=== PATIENT | female | born 1995 | race Caucasian/White ===

== ENCOUNTER 2018-11-21 21:10 | Emergency (ER) | payer OTHER ==
[2018-11-21 21:50] VITALS: RESP 16; TEMP 98.2
[2018-11-21 22:31] VITALS: BP 135/79; PULSE 86
[2018-11-21] MEDS ORDERED: CEPHALEXIN 500 MG CAP PO STA (22:31)
[2018-11-21] MEDS ORDERED: SULFAMETHOX-TMP 800-160MG 1 EACH TAB PO STA (22:31)
[2018-11-21] MEDS ORDERED: CEPHALEXIN 500MG STARTER PACK 4 CAP BTL PO STA (22:31)
[2018-11-21] MEDS ORDERED: SULFAMETH-TMP DS STARTER PACK 2 TAB BTL PO STA (22:31)
--- NOTE | 2018-11-21 22:34 | ED ---
Extremity Problem HPI - General Chief complaint: Extremity Problem,Nontraumatic Stated complaint: Poss MRSA Time Seen by Provider: 11/21/18 22:17 Source: patient, RN notes reviewed, old records reviewed Mode of arrival: ambulatory Limitations: no limitations - History of Present Illness Initial comments: This is a 21-year-old female the ER for evaluation. Left lower extremity pain. Patient has some swelling and edema to left lower extremity left ankle. Unknown if there is recent bug bite or spider bite. Patient does complain of severe pain. No fevers. No other complaints MD Complaint: extremity pain, extremity swelling -: days(s) Location: left, lower extremity, other (Ankle) History of Same: No Severity scale (1-10): 2 Quality: aching Consistency: constant Improves with: nothing Worsens with: nothing Associated Symptoms: denies other symptoms - Related Data Previous Rx's Medication Instructions Recorded Cephalexin [Keflex] 500 mg PO Q6HR #40 cap 11/21/18 Sulfamethox-Tmp 800-160Mg [Bactrim 2 tab PO Q12HR #28 tab 11/21/18 DS 800-160 mg] Allergies Allergy/AdvReac Type Severity Reaction Status Date / Time No Known Allergies Allergy Verified 11/21/18 22:14 Review of Systems ROS Statement: Those systems with pertinent positive or pertinent negative responses have been documented in the HPI. ROS Other: All systems not noted in ROS Statement are negative. Past Medical History Past Medical History: No Reported History History of Any Multi-Drug Resistant Organisms: None Reported Past Surgical History: No Surgical Hx Reported Past Psychological History: No Psychological Hx Reported Smoking Status: Current every day smoker Past Alcohol Use History: Occasional Past Drug Use History: Marijuana General Exam - General Exam Comments Initial Comments: (Ankle does have indurated swelling and tenderness, erythema, started about a 5 cm area Limitations: no limitations General appearance: alert, in no apparent distress Head exam: Present: atraumatic, normocephalic, normal inspection Eye exam: Present: normal appearance, PERRL, EOMI. Absent: scleral icterus, conjunctival injection, periorbital swelling ENT exam: Present: normal exam, mucous membranes moist Neck exam: Present: normal inspection. Absent: tenderness, meningismus, lymphadenopathy Respiratory exam: Present: normal lung sounds bilaterally. Absent: respiratory distress, wheezes, rales, rhonchi, stridor Cardiovascular Exam: Present: regular rate, normal rhythm, normal heart sounds. Absent: systolic murmur, diastolic murmur, rubs, gallop, clicks GI/Abdominal exam: Present: soft, normal bowel sounds. Absent: distended, tenderness, guarding, rebound, rigid Extremities exam: Present: normal inspection, full ROM, normal capillary refill. Absent: tenderness, pedal edema, joint swelling, calf tenderness Back exam: Present: normal inspection Neurological exam: Present: alert, oriented X3, CN II-XII intact Psychiatric exam: Present: normal affect, normal mood Skin exam: Present: warm, dry, intact, normal color. Absent: rash Course Vital Signs 11/21/18 11/21/18 21:44 22:31 Temperature 98.2 F Pulse Rate 99 86 Respiratory 16 16 Rate Blood Pressure 142/81 135/79 O2 Sat by Pulse 97 99 Oximetry Medical Decision Making - Medical Decision Making 23 female the ER with cellulitis of left ankle. Patient encouraged warm compresses and to continue antibiotics. Return if symptoms worsen, if rash spreads proximally or fever develops Disposition Clinical Impression: Cellulitis, Cellulitis of left ankle Disposition: HOME SELF-CARE Instructions (If sedation given, give patient instructions): Cellulitis (ED) Prescriptions: Cephalexin [Keflex] 500 mg PO Q6HR #40 cap Sulfamethox-Tmp 800-160Mg [Bactrim DS 800-160 mg] 2 tab PO Q12HR #28 tab Is patient prescribed a controlled substance at d/c from ED?: No Referrals: Denis Durand MD [Primary Care Provider] - 1-2 days
== END 2018-11-21 22:44 | disposition home or self-care (01) ==
LOC: EC 21:10
DX: L03.116 Cellulitis of left lower limb (principal); F17.200 Nicotine dependence, unspecified, uncomplicated
CPT/HCPCS: 99284

== ENCOUNTER 2019-10-02 17:33 | Outpatient (CLI) | payer BC, OTHER ==
[2019-10-02] MEDS: DEXTROSE 5%-LACTATED RINGERS 1,000 ML IV SCH ×2 (19:05→20:05)
[2019-10-02] MEDS ORDERED: ONDANSETRON 4 MG/2 ML VIAL IM STA (19:46)
[2019-10-02 20:52] LABS: Appearance,Urine Clear (Clear); Bacteria,Urine Rare /hpf; Bilirubin,Urine Negative (Negative); Blood,Urine Negative (Negative); Color,Urine Yellow; Glucose,Urine (UA) 4+ (Negative); Leukocyte Esterase,Urine Trace (Negative); Mucus,Urine Many /hpf; Nitrite,Urine Negative (Negative); PH, Urine 5.5 (5.0-8.0); Protein,Urine 1+ (Negative); RBC,Urine 1 /hpf (0-5); Specific Gravity,Urine 1.026 (1.001-1.035); Squamous Epithelial Cell,Urine 3 /hpf (0-4); Urobilinogen,Urine <2.0 mg/dL (<2.0); WBC,Urine 3 /hpf (0-5)
[2019-10-02 21:09] LABS: Ketones,Urine 3+ (Negative)
[2019-10-02] MEDS ORDERED: LACTATED RINGERS 1,000 ML IV SCH (21:30)
[2019-10-03 01:26] VITALS: BP 122/57; PULSE 118; RESP 16; TEMP 97.7
--- NOTE | 2019-11-01 07:53 | P.MSEPDOC ---
Presenting Problems - Arrival Data Date of Arrival on Unit: 10/03/19 Time of Arrival on Unit: 17:33 Mode of Transport: Ambulatory - Complaint OB-Reason for Admission/Chief Complaint: Acute Nausea/Vomiting Medical History - Information : 1 Para: 0 Term: 0 : 0 Abortions: Spontaneous or Elective: 0 Number of Living Children: 0 - Gestational Age Gestational Age by WILFRED (wks/days): 32 Weeks and 0 Days Review of Systems - Review of Systems Constitutional: No problems Breast: No problems ENT: No problems Cardiovascular: No problems Respiratory: No problems Gastrointestinal: Diarrhea Genitourinary: No problems Musculoskeletal: No problems Neurological: No problems Skin: No problems Vital Signs - Temperature Temperature: 97.7 F Temperature Source: Temporal Artery Scan - Pulse Right Brachial Pulse Rate: 118 Pulse Assessment Method: Automatic Cuff - Respirations Respiratory Rate: 16 Oxygen Delivery Method: Room Air O2 Sat by Pulse Oximetry: 98 - Blood Pressure Right Arm Blood Pressure: 122/57 Blood Pressure Mean: 78 Blood Pressure Source: Automatic Cuff Medical Screen Scoring (Pre) - Cervical Exam Dilation: Exam Deferred Effacement: Exam Deferred Membranes: Intact - Uterine Contractions Frequency: N/A Duration: N/A Intensity: N/A - Maternal Vital Signs Maternal Temperature: N/A Maternal Blood Pressure: N/A Signs of Preeclampsia: N/A Maternal Respirations: N/A - Maternal Trauma Maternal Trauma: N/A - Assessment - Baby A Baseline FHR: 155 Heart Rate - NICHD Category: Category I (Normal) = 0 NST: Reactive Position: N/A Station: N/A - Total Score - Baby A Total Score - Baby A: 0 - Total Score - Baby B Total Score - Baby B: 0 - Total Score - Baby C Total Score - Baby C: 0 - Level of Risk - Baby A Level of Risk - Baby A: Low (0-5) - Level of Risk - Baby B Level of Risk - Baby B: Low (0-5) - Level of Risk - Baby C Level of Risk - Baby C: Low (0-5) Physician Notification (Pre) - Physician Notified Physician Notified Date: 10/03/19 Physician Notified Time: 00:38 - Notification Comment Comment: RN spoke to Dr. Ayers. RN relayed that patient was currently feeling no nausea,. had not vomited, and states that she is feeling much better and would like to go home. Patient also reported that her heart rate is usually 105-[address] Ayers states. patient may go home and keep her current follow up appt. Patient instructed to return to. triage if any symptoms persist. Disposition - Disposition OB Disposition: Physician follow up in office, Discharge to home Discharge Date: 10/03/19 Discharge Time: 01:20 I agree with the RN Medical Screening Exam: Yes Risk & Benefit of care provided described in d/c instruction: Yes Diagnosis: LATE VOMITING OF
== END 2019-10-03 01:20 | disposition home or self-care (01) ==
LOC: FBPOP 17:33
PROVIDERS: ATTEND Obstetrics & Gynecology
DX: O21.2 Late vomiting of pregnancy (principal); Z3A.32 32 weeks gestation of pregnancy
CPT/HCPCS: 59025; 99214; 96360; 96361; 96375; 81001; J2405

== ENCOUNTER 2019-11-26 05:55 | Inpatient (IN) | payer BC, OTHER ==
[2019-11-26] MEDS ORDERED: LIDOCAINE 0.5% (PF) 5 MG/ML (50 ML SDV) SQ PRN (06:04)
[2019-11-26] MEDS ORDERED: OXYTOCIN 10 UNIT/ML 1 ML VIAL IM PRN (06:04)
[2019-11-26] MEDS ORDERED: METHYLERGONOVINE 0.2 MG/ML 1 ML AMP IM PRN (06:04)
[2019-11-26] MEDS ORDERED: CARBOPROST TROMETHAMINE 250 MCG/ML 1 ML AMP IM PRN (06:04)
[2019-11-26] MEDS ORDERED: TERBUTALINE 1 MG/ML VIAL SQ PRN (06:04)
[2019-11-26] MEDS: LACTATED RINGERS 1,000 ML IV SCH ×3 (06:11→16:08)
[2019-11-26] MEDS ORDERED: PENICILLIN G POTASSIUM 5,000,000 UNIT in DEXTROSE 5% IN WATER 100 ML IVPB ONE ×2 (06:15)
[2019-11-26 06:29] LABS: Basophils % (A) 0 %; Eosinophils # (A) 0.3 k/uL (0-0.7); Eosinophils % (A) 2 %; HCT 35.5 % (34.0-46.0); HGB 11.4 gm/dL (11.4-16.0); Lymphocytes # (A) 2.3 k/uL (1.0-4.8); Lymphocytes % (A) 11 %; MCH 25.8 pg (25.0-35.0); MCHC 32.2 g/dL (31.0-37.0); MCV 80.3 fL (80.0-100.0); Mean Platelet Volume 7.8; Monocytes # (A) 0.7 k/uL (0-1.0); Monocytes % (A) 3 %; Neutrophils % (A) 83 %; Platelet Count 338 k/uL (150-450); RBC 4.41 m/uL (3.80-5.40); RDW 13.9 % (11.5-15.5); WBC 20.6 k/uL (3.8-10.6)
[2019-11-26] MEDS: OXYTOCIN 30 UNITS/500 ML NS 30 UNIT in SALINE 1 500ML.BAG IV SCH (06:29)
--- NOTE | 2019-11-26 07:41 | P.HPOB ---
History of Present Illness H&P Date: 11/26/19 This is a 24-year-old white female 1 para 0 EDC 11/28/2019 39-5/7 weeks' gestation. Patient presents for induction with reasonably favorable cervix. Most recent 24-hour urine showed elevated protein. Fetus is been active throughout the . Blood pressures have been normal, slightly elevated this morning. She denies uterine contractions, vaginal bleeding, or fluid leakage. Past medical history is essentially negative with the exception of morbid obesity. Past surgical history negative. Current medications vitamins daily. ALLERGIES none known. Family history is negative. Social history patient is single, father of the baby is involved, she is a former smoker of 1 pack per day tobacco, no smoking with . She denies alcohol or drug use. history is significant for blood type O-, rubella status nonimmune. Pap smear low grade CHRIS. Positive group B strep cultures in the urine. Hepatitis B surface antigen, HIV testing, rhinorrhea and chlamydia cultures, most recent urine culture negative. One-hour Glucola 105. On exam patient is 5 foot 10 inches, 303 pounds, blood pressure on admission 142/87, pulse 98, patient is afebrile. The general physical exam is remarkable for morbid obesity. Extremities reveal no edema. Chest is clear in all esposito. Cervix is 4 cm dilated, 60% effaced, -2 station, anterior, soft. Artificial amniorrhexis reveals clear fluid. heart rate in the 140s with accelerations consistent with reactive NST. Uterine contractions mild, occurring every 3-4 minutes apart. Penicillin G first dose is infusing, oxytocin has been started per hospital protocol. Impression: 39-5/7 weeks intrauterine , here for induction of labor with most recent 24-hour urine showing elevated protein. Positive group B strep cultures. Rubella status immune. All signs at this point reassuring. Plan: Continue oxytocin per hospital protocol and penicillin G per protocol. Close maternal and surveillance. Anticipate normal spontaneous vaginal delivery. Review of Systems Constitutional: Reports as per HPI Past Medical History Past Medical History: No Reported History History of Any Multi-Drug Resistant Organisms: None Reported Past Surgical History: No Surgical Hx Reported Past Anesthesia/Blood Transfusion Reactions: No Reported Reaction Past Psychological History: No Psychological Hx Reported Smoking Status: Former smoker Past Alcohol Use History: Occasional Past Drug Use History: Marijuana Additional Drug Use History / Comment(s): not during Medications and Allergies Home Medications Medication Instructions Recorded Confirmed Type Pnv,Calcium 72/Iron/Folic Acid 1 tab PO DAILY 11/26/19 11/26/19 History [ Plus Tablet] Allergies Allergy/AdvReac Type Severity Reaction Status Date / Time No Known Allergies Allergy Verified 11/26/19 06:02 Exam Vital Signs Temp Pulse Resp BP Pulse Ox 11/26/19 06:01 98.0 F 107 H 16 142/87 96 Intake and Output 11/25/19 11/26/19 11/26/19 22:59 06:59 14:59 Other: Weight 137.[address] exam under HPI please Results Result Diagrams: 11/26/19 06:10 Abnormal Lab Results - Last 24 Hours (Table) 11/26/19 Range/Units 06:10 WBC 20.6 H (3.8-10.6) k/uL Neutrophils # 17.0 H (1.3-7.7) k/uL Assessment and Plan Assessment: 39-5/7 weeks intrauterine , here for induction of labor with proteinuria, morbid obesity, positive group B strep cultures, rubella status immune. Plan: Penicillin G per hospital protocol, first dose infusing. Oxytocin per hospital protocol. Close maternal and surveillance. Anticipate normal spontaneous vaginal delivery. Time with Patient: Less than 30
[2019-11-26] MEDS: PENICILLIN G POTASSIUM 2,500,000 UNIT in DEXTROSE 5% IN WATER 100 ML IVPB SCH ×2 (10:51)
[2019-11-26] MEDS ORDERED: BUTORPHANOL 1 MG/ML 1 ML VIAL IV PRN (11:02)
[2019-11-26] MEDS ORDERED: SODIUM CHLORIDE 0.9% 100 ML BAG ONE (13:19)
[2019-11-26] MEDS ORDERED: ROPIVACAINE 5MG/ML 20ML VIAL ONE (13:19)
[2019-11-26] MEDS ORDERED: fentaNYL (PF) 50 MCG/ML 5 ML AMP ONE (13:19)
[2019-11-26] MEDS ORDERED: CITRIC ACID-SODIUM CITRATE 15 ML CUP PO ONE (16:19)
[2019-11-26] MEDS ORDERED: ceFAZolin 3 GM in SODIUM CHLORIDE 0.9% 100 ML IVPB ONE (16:30)
[2019-11-26] MEDS ORDERED: OXYTOCIN 10 UNIT/ML 1 ML VIAL ONE (16:33)
[2019-11-26] MEDS ORDERED: PHENYLEPHRINE-0.9% NACL SYG 1 MG/10 ML SYRINGE ONE (16:33)
[2019-11-26] MEDS ORDERED: KETOROLAC 30 MG/ML 1 ML VIAL ONE (16:33)
[2019-11-26] MEDS ORDERED: ceFAZolin 1,000 MG VIAL ONE (16:33)
[2019-11-26] MEDS ORDERED: diphenhydrAMINE 25 MG CAP PO PRN (17:32)
[2019-11-26] MEDS ORDERED: ZOLPIDEM 5 MG TAB PO PRN (17:32)
[2019-11-26] MEDS ORDERED: diphenhydrAMINE 50 MG CAP PO PRN (17:32)
[2019-11-26] MEDS ORDERED: ONDANSETRON 4 MG/2 ML VIAL IVP PRN (17:32)
[2019-11-26] MEDS ORDERED: diphenhydrAMINE 50 MG/ML 1 ML VIAL IVP PRN ×2 (17:32)
[2019-11-26] MEDS ORDERED: SIMETHICONE 80 MG CHEWABLE PO PRN (17:32)
[2019-11-26] MEDS ORDERED: NALOXONE 0.4 MG/ML 1 ML VIAL IV PRN (17:32)
[2019-11-26] MEDS ORDERED: METOCLOPRAMIDE 5 MG/ML 2 ML VIAL IVP PRN (17:32)
[2019-11-26] MEDS ORDERED: KETOROLAC 30 MG/ML 1 ML VIAL IVP PRN (17:32)
--- NOTE | 2019-11-26 17:32 | P.OP ---
Date of Procedure: 11/26/19 Preoperative Diagnosis: 39-5/7 weeks intrauterine , morbid obesity, arrest of dilation in labor, positive group B strep cultures Postoperative Diagnosis: Same, liveborn male , nuchal cord 1. Procedure(s) Performed: Primary low transverse section Anesthesia: epidural Surgeon: Lorena Ayers Production Material Handler #1: Hortencia Cerrato Estimated Blood Loss (ml): 450 IV fluids (ml): 1,000 Urine output (ml): 100 Pathology: none sent Condition: stable Disposition: PACU Description of Procedure: Patient presented for induction with favorable cervix. is remarkable for rubella status nonimmune, blood type O-, morbid obesity, and positive group B strep cultures. Patient was admitted, penicillin G was given 2 per hospital protocol. Oxytocin was started and titrated per hospital protocol. Patient became sick sent immediately dilated and had no further dilatation after 3 hours and 20 minutes of labor. Decision was made to proceed with primary low transverse section. Informed consent was reviewed signed witnessed and dated. Vaginal prep was performed, abdomen is prepped with a suprapubic phase. 3 g of Ancef were given. Epidural was topped off. Patient is brought back to the operating suite. Abdomen is prepped and draped in usual sterile fashion. The appropriate timeout is performed to assure proper patient and procedural identification. Analgesia is checked and noted to be adequate. A low transverse uterine incision is made after taping the large abdominal pannus up with the exposure system. The incision is brought down through the subcutaneous tissue which is approximately 8 cm deep. Fascia is isolated, scored, and extended bilaterally with curved Cunha scissors. Peritoneum is next identified and incised, there is no bowel or bladder involvement. The large a Lisbet wound retractors placed for good exposure. A low transverse uterine incision is made in this is carried down. The incision is extended with blunt dissection. Infant's head is delivered occiput anterior. There is a nuchal cord 1 that is reduced. The oropharynx, nasopharynx, and external nares are all bulb suction. Patient is officially delivered of a liveborn male at 1650. The umbilical cord is doubly clamped and ligated, he is handed to waiting nurses for evaluation where scores of 9 and 9 at one and 5 minutes respectively are given. Cord blood is sent to the lab for Rh- status. Placentas delivered manually, it is inspected and noted to be intact with trivascular cord at 1651 hours. Uterus is then externalized. It is wiped clean with a sterile sponge to avoid any retained products of conception. The edges are grasped with Lama clamps. The uterus is closed in a two-step fashion, first layer running locking with 0 Vicryl, second layer imbricated with same. Bilateral tubes and ovaries are inspected and noted to be normal. The uterus is brought forward and the abdomen is suctioned with suction on guard posterior to the uterus. It is then gently placed back into the abdominal cavity, bilateral gutters are inspected and cleaned. Uterine incision is nicely intact, clean and dry. The peritoneum was allowed to close by secondary intention. The fascia is closed in a running stitch, over ligation in the midline. Subcutaneous tissue is carefully inspected, irrigated, noted to be clean and dry. It is reapproximated with 3-0 Vicryl in a running fashion. 4-0 undyed Monocryl is used for final skin closure in a subcuticular manner. Steri-Strips and Mastisol are applied to the wound. Uterus is massaged. All sponge needle and enhancement counts are correct at the end of the procedure. Harrell is noted to be draining clear urine. Patient is brought back to recovery room with stable vital signs including a blood pressure of 136/67, pulse 105. Patient is requesting circumcision for her son. Total estimated blood loss 450 mL, fluid replacement 1000 mL crystalloid, urine 100 mg, clear.
[2019-11-26] MEDS: SENNOSIDES-DOCUSATE SODIUM 1 EACH TAB PO SCH (19:56)
[2019-11-27] MEDS: LACTATED RINGERS 1,000 ML IV SCH ×4 (00:17→20:32)
[2019-11-27 06:14] LABS: Basophils % (A) 0 %; Eosinophils # (A) 0.1 k/uL (0-0.7); Eosinophils % (A) 0 %; HCT 31.3 % (34.0-46.0); Lymphocytes # (A) 1.9 k/uL (1.0-4.8); Lymphocytes % (A) 11 %; MCH 25.9 pg (25.0-35.0); MCHC 31.8 g/dL (31.0-37.0); MCV 81.5 fL (80.0-100.0); Mean Platelet Volume 8.1; Monocytes # (A) 0.7 k/uL (0-1.0); Monocytes % (A) 4 %; Neutrophils # (A) 15.2 k/uL (1.3-7.7); Neutrophils % (A) 84 %; Platelet Count 261 k/uL (150-450); RBC 3.84 m/uL (3.80-5.40)
[2019-11-27] MEDS: SENNOSIDES-DOCUSATE SODIUM 1 EACH TAB PO SCH ×2 (07:46→20:29)
--- NOTE | 2019-11-27 08:06 | P.PN ---
Subjective Progress Note Date: 11/27/19 Principal diagnosis: Postoperative day #1 Slept well. Pain well controlled. Urinating, no complaints Objective - Vital Signs Vital signs: Vital Signs Temp 97.8 F 11/27/19 04:00 Pulse 95 11/27/19 04:00 Resp 16 11/27/19 04:00 BP 133/60 11/27/19 04:00 Pulse Ox 98 11/27/19 04:00 Intake & Output 11/26/19 11/27/19 11/27/19 18:59 06:59 18:59 Intake Total 100 Output Total 480 926 Balance -480 -826 Intake: Oral 100 Output: Urine 900 Uretheral (Harrell) 400 Estimated Blood Loss 480 26 Other: Voiding Method Indwelling Catheter Indwelling Catheter # Voids 1 1 - Constitutional General appearance: Present: morbidly obese - EENT Eyes: Present: PERRLA ENT: Present: hearing grossly normal - Respiratory Respiratory: bilateral: CTA - Cardiovascular Rhythm: regular - Gastrointestinal General gastrointestinal: Present: normal bowel sounds - Genitourinary Genitourinary Comment(s): Incision clean and dry, intact, Steri-Strips applied. Fundus firm, midline, sym metric, 18 week size. - Integumentary Integumentary: Present: normal - Neurologic Neurologic: Present: CNII-XII intact - Musculoskeletal Musculoskeletal: Present: gait normal, strength equal bilaterally - Psychiatric Psychiatric: Present: A&O x's 3, appropriate affect, intact judgment & insight - Labs CBC & Chem 7: 11/27/19 05:32 Labs: Abnormal Lab Results - Last 24 Hours (Table) 11/27/19 Range/Units 05:32 WBC 18.0 H (3.8-10.6) k/uL Hgb 10.0 L (11.4-16.0) gm/dL Hct 31.3 L (34.0-46.0) % Neutrophils # 15.2 H (1.3-7.7) k/uL Assessment and Plan Assessment: Doing well postoperative day #1 Plan: Advance diet and activity. Continue postoperative care. Likely discharge home tomorrow. Circumcision on her this morning. Time with Patient: Less than 30
[2019-11-27] MEDS ORDERED: MEASLES-MUMPS-RUBELLA VACC/PF 12,500 UNIT/0.5 ML VIAL SQ ONE (12:30)
[2019-11-27] MEDS: IBUPROFEN 600 MG TAB PO PRN ×2 (14:49→22:31)
[2019-11-27] MEDS: ACETAMINOPHEN TAB 325 MG TAB PO PRN (19:43)
[2019-11-27] MEDS: PENICILLIN G POTASSIUM 2,500,000 UNIT in DEXTROSE 5% IN WATER 100 ML IVPB SCH ×4 (20:30→20:31)
[2019-11-27] MEDS: OXYTOCIN 30 UNITS/500 ML NS 30 UNIT in SALINE 1 500ML.BAG IV SCH (20:32)
--- NOTE | 2019-11-28 07:51 | P.DS ---
Providers Date of admission: 11/26/19 05:55 Expected date of discharge: 11/28/19 Attending physician: Lorena Ayers Primary care physician: Stated None Hospital Course: This is a 24-year-old white female 1 para 0 EDC 11/28/2019 39-5/7 weeks' gestation. Patient presented for induction of labor with a favorable cervix. is remarkable for positive group B strep cultures, rubella status nonimmune, blood type O-. Please see admitting H&P for details. Artificial amniorrhexis revealed clear fluid and oxytocin was started and titrated per hospital protocol. Patient requested and received an epidural. She became 6 and use dilated and had arrest of dilatation and descent, decision was made to proceed with primary low transverse section. She underwent this procedure and gave to a liveborn male infant with scores of 9 and 9 at one and 5 minutes respectively. Infant weighed 7 lbs. 4 oz. or 3290 g. There was a nuchal cord 1 that was reduced, estimated blood loss 450 mL's. Please see my dictated delivery note for details. This morning the patient is doing very well. She is voiding, ambulating, and passing flatus without difficulty. 2 doses of penicillin had been received in the first stage of labor, is doing well, circumcision has been performed. The patient has minimal lochia rubra, incision is clean and dry, intact with Steri-Strips applied. Abdominal binder is placed. Chest is clear in all esposito. Extremities reveal no edema. Patient is breast-feeding well, and a prescription for a double electric breast pump has been provided. She is judged to be in very good condition for discharge home. I have reminded her no intercourse, tampons or douching. She has received meruvax. She will use [id number] Aleve, or exercise strength Tylenol as needed for pain. We have talked about an appropriate method for postop analgesia. She is reminded no heavy lifting, no driving for 2 weeks. She will call with any fevers shakes or chills, foul smelling or copious lochia, with the passage of large blood clots, with any pain not alleviated by [id number] products, or indeed with any concerns. infant will follow-up with gis manager as per recommendations. Patient Condition at Discharge: Good Plan - Discharge Summary Discharge Rx Participant: No New Discharge Prescriptions: No Action Pnv,Calcium 72/Iron/Folic Acid [ Plus Tablet] 1 tab PO DAILY Discharge Medication List Pnv,Calcium 72/Iron/Folic Acid [ Plus Tablet] 1 tab PO DAILY 11/26/19 [History] Follow up Appointment(s)/Referral(s): Lorena Ayers MD [STAFF PHYSICIAN] - 2 Weeks Discharge Disposition: HOME SELF-CARE
[2019-11-28] MEDS: IBUPROFEN 600 MG TAB PO PRN (08:24)
[2019-11-28] MEDS: SENNOSIDES-DOCUSATE SODIUM 1 EACH TAB PO SCH (08:26)
[2019-11-28 08:40] VITALS: BP 135/65; PULSE 92; RESP 18; TEMP 97.1
[2019-11-28] MEDS: ACETAMINOPHEN TAB 325 MG TAB PO PRN (11:32)
== END 2019-11-28 14:30 | disposition home or self-care (01) | DRG 788 ==
LOC: 4FBP 05:55
PROVIDERS: ADMIT Obstetrics & Gynecology; ATTEND Obstetrics & Gynecology
PROC: 3E0R3BZ Introduction of Anesthetic Agent into Spinal Canal, Percutaneous Approach (ICD-10-PCS; principal; 2019-11-26 16:51)
PROC: 00HU33Z Insertion of Infusion Device into Spinal Canal, Percutaneous Approach (ICD-10-PCS; principal; 2019-11-26 16:51)
PROC: 3E033VJ Introduction of Other Hormone into Peripheral Vein, Percutaneous Approach (ICD-10-PCS; principal; 2019-11-26 16:51)
PROC: 10D00Z1 Extraction of Products of Conception, Low, Open Approach (ICD-10-PCS; principal; 2019-11-26 16:51)
PROC: 3E0134Z Introduction of Serum, Toxoid and Vaccine into Subcutaneous Tissue, Percutaneous Approach (ICD-10-PCS; 2019-11-27)
DX: O62.0 Primary inadequate contractions (principal); O99.214 Obesity complicating childbirth; E66.01 Morbid (severe) obesity due to excess calories; O69.81X0 Labor and delivery complicated by cord around neck, without compression, not applicable or unspecified; Z37.0 Single live birth; Z3A.39 39 weeks gestation of pregnancy; Z23 Encounter for immunization; Z79.899 Other long term (current) drug therapy; Z87.891 Personal history of nicotine dependence
CPT/HCPCS: 85025; 86850; 86900; 86901; 90707

== ENCOUNTER 2022-09-29 14:28 | Emergency (ER) | payer OTHER ==
[2022-09-29 15:41] VITALS: BP 109/63; PULSE 122; RESP 20; TEMP 96.8
[2022-09-29 16:04] LABS: Appearance,Urine Cloudy (Clear); Bacteria,Urine Rare /hpf; Bilirubin,Urine Negative (Negative); Blood,Urine Negative (Negative); Color,Urine Yellow; Glucose,Urine (UA) Negative (Negative); Ketones,Urine 2+ (Negative); Leukocyte Esterase,Urine Negative (Negative); Mucus,Urine Many /hpf; Nitrite,Urine Negative (Negative); PH, Urine 6.5 (5.0-8.0); Protein,Urine 1+ (Negative); RBC,Urine 1 /hpf (0-5); Specific Gravity,Urine 1.024 (1.001-1.035); Squamous Epithelial Cell,Urine 8 /hpf (0-4); Urobilinogen,Urine <2.0 mg/dL (<2.0); WBC,Urine 1 /hpf (0-5)
== END 2022-09-29 22:10 | disposition left against medical advice (07) ==
LOC: EC 14:28
DX: Z53.21 Procedure and treatment not carried out due to patient leaving prior to being seen by health care provider (principal)
CPT/HCPCS: 81001; 99499

== ENCOUNTER 2022-11-17 15:34 | Inpatient (IN) | payer OTHER ==
[2022-11-17] MEDS ORDERED: LACTATED RINGERS 1,000 ML IV ONE (15:39)
[2022-11-17] MEDS ORDERED: ceFAZolin 3 GM in SODIUM CHLORIDE 0.9% 100 ML IVPB ONE (15:39)
[2022-11-17] MEDS ORDERED: CITRIC ACID-SODIUM CITRATE 15 ML CUP PO ONE (15:39)
[2022-11-17 15:59] LABS: Glucose,Whole Blood 88 mg/dL (70-110)
--- NOTE | 2022-11-17 16:19 | P.HPOB ---
History of Present Illness H&P Date: 11/17/22 Chief Complaint: No movement for 2 days, nonreactive NST This is a 27-year-old female 2 para 1001 EDC 11/28/2022 at 38-3/7 weeks' gestation. Patient presented to the office today for her routine obstetrical visit, is scheduled for repeat and tubal ligation in 4 days. She reports no movement for 2 days. NST is nonreactive after over 1 hour of evaluation. Blood pressure in the office 150/80. 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 Past medical history is significant for obesity, anxiety and depression. Past surgical history section 2019, colposcopy 2018. Current medications vitamin daily, baby aspirin 2 daily, citalopram 20 mg tablets daily. ALLERGIES none known. Family history noncontributory. history is significant for blood type O-, rubella status immune. Liver function studies, hemoglobin A1c, uric acid all negative. HIV testing negative hepatitis B surface antigen negative. Hemoglobin 12.6. Group B strep cultures negative. Social history patient is a former tobacco smoker, 1 pack per day, quit with . She reports almost daily marijuana use. She is engaged, father of the baby is present and involved. She denies other drug use or other issues. On exam patient is 5 foot 10 inches, 311 pounds, blood pressure 150/80, repeat 140/92. General exam is within normal limits. Abdomen is obviously gravid, fetus is vertex to Geoff's maneuvers. As noted heart rate is in the 140s with no accelerations, now having been monitored for almost 2 hours. Extremities reveal trace edema. Normal reflexes. Cervix long thick and closed. Impression: 39-3/7 weeks intrauterine , nonreactive NST, decreased movement for 2 days, undesired fertility, morbid maternal obesity. Previous section, declining option for . Plan: Antibiotic prophylaxis. For repeat low transverse section and tubal ligation at this time. All risks and benefits reviewed in detail. Anesthesia and pediatric team aware. Review of Systems Constitutional: Reports as per HPI Past Medical History Past Medical History: No Reported History History of Any Multi-Drug Resistant Organisms: None Reported Past Surgical History: No Surgical Hx Reported Past Anesthesia/Blood Transfusion Reactions: No Reported Reaction Past Psychological History: No Psychological Hx Reported Smoking Status: Never smoker Past Alcohol Use History: Occasional Past Drug Use History: Marijuana Medications and Allergies Home Medications Medication Instructions Recorded Confirmed Type Vit No.180/Iron/Folic 1 tab PO DAILY 11/26/19 11/17/22 History [ Plus Tablet] Citalopram Hydrobromide 20 mg PO DAILY 11/17/22 History [Citalopram HBr] Allergies Allergy/AdvReac Type Severity Reaction Status Date / Time No Known Allergies Allergy Verified 11/17/22 15:38 Exam Intake and Output 11/17/22 11/17/22 11/17/22 06:59 14:59 22:59 Other: Weight 141.067 kg See dictation under HPI please Assessment and Plan Assessment: 38-3/7 weeks intrauterine , decreased movement and nonreactive NST, undesired fertility, morbid obesity, daily marijuana use. Plan: For repeat low transverse section and tubal ligation at this time. Antibiotic prophylaxis. All questions answered. Anesthesia and pediatric teams aware. Time with Patient: Less than 30
[2022-11-17 16:26] LABS: Basophils # (A) 0.1 k/uL (0-0.2); Basophils % (A) 0 %; Eosinophils # (A) 0.1 k/uL (0-0.7); Eosinophils % (A) 1 %; HCT 37.5 % (34.0-46.0); HGB 12.5 gm/dL (11.4-16.0); Lymphocytes # (A) 2.2 k/uL (1.0-4.8); Lymphocytes % (A) 12 %; MCH 26.7 pg (25.0-35.0); MCHC 33.3 g/dL (31.0-37.0); MCV 80.1 fL (80.0-100.0); Mean Platelet Volume 7.9; Monocytes # (A) 0.6 k/uL (0-1.0); Monocytes % (A) 3 %; Neutrophils # (A) 15.1 k/uL (1.3-7.7); Neutrophils % (A) 83 %; Platelet Count 367 k/uL (150-450); RBC 4.69 m/uL (3.80-5.40); RDW 13.9 % (11.5-15.5); WBC 18.2 k/uL (3.8-10.6)
[2022-11-17] MEDS ORDERED: NALBUPHINE 10 MG/ML (1 ML AMP) ONE (16:27)
[2022-11-17] MEDS ORDERED: OXYTOCIN 30 UNITS/500 ML NS BAG IV ONE (16:27)
[2022-11-17] MEDS ORDERED: ePHEDrine 50 MG/ML 1 ML VIAL ONE (16:27)
[2022-11-17] MEDS ORDERED: ONDANSETRON 4 MG/2 ML VIAL ONE (16:27)
[2022-11-17] MEDS ORDERED: KETOROLAC 15 MG/ML 1 ML VIAL ONE (16:27)
[2022-11-17] MEDS ORDERED: MORPHINE SULFATE (PF) 0.3 MG/0.3 ML SYR ONE (16:27)
[2022-11-17] MEDS ORDERED: ZOLPIDEM 5 MG TAB PO PRN (17:30)
[2022-11-17] MEDS ORDERED: SIMETHICONE 80 MG CHEWABLE PO PRN (17:30)
[2022-11-17] MEDS ORDERED: NALOXONE 0.4 MG/ML 1 ML VIAL IV PRN (17:30)
[2022-11-17] MEDS: LACTATED RINGERS 1,000 ML IV SCH (17:30)
[2022-11-17] MEDS ORDERED: ONDANSETRON 4 MG/2 ML VIAL IVP PRN (17:30)
[2022-11-17] MEDS ORDERED: METOCLOPRAMIDE 5 MG/ML 2 ML VIAL IVP PRN (17:30)
[2022-11-17] MEDS ORDERED: diphenhydrAMINE 50 MG CAP PO PRN (17:30)
[2022-11-17] MEDS ORDERED: diphenhydrAMINE 25 MG CAP PO PRN (17:30)
[2022-11-17] MEDS ORDERED: diphenhydrAMINE 50 MG/ML 1 ML VIAL IVP PRN ×2 (17:30)
--- NOTE | 2022-11-17 17:30 | P.OP ---
Date of Procedure: 11/17/22 Preoperative Diagnosis: 38-2/7 weeks intrauterine , gestational diabetes, nonreassuring heart tones, undesired fertility, previous declining , absent movement for 2 days Postoperative Diagnosis: Liveborn female infant, nuchal cord 1, meconium-stained fluid. Procedure(s) Performed: Repeat low transverse section, bilateral tubal ligation utilizing Filshie clips Anesthesia: spinal Surgeon: Lorena Ayers Quality Control Supervisor #1: Josie Garcia Estimated Blood Loss (ml): 280 IV fluids (ml): 600 Urine output (ml): 300 Pathology: other (Meconium-stained placenta) Condition: stable Disposition: PACU Operative Findings: Liveborn female , 6 lbs. 14 oz., 3120 g, meconium-stained fluid, nuchal cord 1, normal-appearing tubes and ovaries bilaterally Description of Procedure: Patient is brought to the operating suite where a spinal with Duramorph is given without issue per the anesthesia staff. She's placed in the dorsal supine position left lateral uterine displacement. Harrell catheter to direct drainage. 3 g of Ancef given. Abdomen is prepped and draped in the usual sterile fashion. The abdominal pain and's are placed and situated up by anesthesia to facilitate proper incisional placement. The appropriate timeout is performed to assure proper patient and procedural identification. Analgesia is checked and noted to be adequate. A low transverse skin incision is made in this is carried down through the subcutaneous tissue which is approximately 12 cm deep. Fascia is identified, isolated, scored, extended bilaterally with curved Cunha scissors. Peritoneum is next identified and incised, there is no bowel or bladder involvement. Metzenbaum scissors are used to bring the bladder flap down. The large ring retractor is placed into the abdominal cavity again to aid in proper visualization. A low transverse uterine incision is made, carried down through the myometrium. Artificial amniorrhexis reveals meconium-stained fluid. The incision is extended with blunt dissection. The 's head is delivered in the occiput anterior position. There was a nuchal cord 1 was reduced. Patient is officially delivered of a liveborn female , umbilical cord is doubly clamped and ligated. Baby is handed to waiting nurses for evaluation where scores of 7 and 8 at one and 5 minutes respectively are given. The airway is thoroughly suctioned, oropharynx, nasopharynx, and external nares. Cord blood is sent to the lab for Rh- status. Placenta is delivered manually, it is noted to be deeply meconium-stained and therefore sent to pathology for evaluation, trivascular cord, fully intact. Uterus is then externalized and massaged. Oxytocin is given. Uterus is wiped clean with a sterile sponge to avoid any retained products of conception. Uterus is closed in one-step single thickness suture of 0 Vicryl for excellent reapproximation. Bilateral tubes and ovaries are inspected, noted to be normal. Filshie clips are placed bilaterally in the isthmic portion of both tubes, with care to traverse the entire diameter of the tubes into the mesal salpinx, fimbriated ends visualized bilaterally. Abdomen is suctioned with suction on guard posterior to the uterus. Uterus is gently placed back into the abdominal cavity. Bilateral gutters are inspected and cleaned. Incision is clean and dry. Peritoneum is allowed to close by secondary intention. Fascia is closed in a running stitch of 0 Vicryl with over ligation in the midline. Subcutaneous tissue is irrigated, clean and dry. It is reapproximated with 2-0 Vicryl in a running stitch. 4-0 undyed Vicryl issues for final skin closure. Steri-Strips and Mastisol are applied to the wound. The silver nitrate impregnated dressing is also applied. All sponge needle and enhancement counts are correct. Patient is brought back to the recovery room in excellent condition with stable vital signs including a pulse of 82, blood pressure 124/59, 99% O2 saturation. weighed 6 lbs. 14 oz. or 3120 g. Harrell is noted to be draining clear urine. Patient and her are allowed to begin the bonding experience in the LDR.
[2022-11-17] MEDS ORDERED: OXYTOCIN 30 UNITS/500 ML NS 30 UNIT in SALINE 1 500ML.BAG IV SCH (17:45)
[2022-11-17] MEDS: SENNOSIDES-DOCUSATE SODIUM 1 EACH TAB PO SCH (20:27)
[2022-11-17] MEDS: ACETAMINOPHEN TAB 500 MG TAB PO SCH (20:29)
[2022-11-17 20:39] LABS: Cocaine Screen,Urine Not Detected (NotDetected); Phencyclidine Screen,Urine Not Detected (NotDetected); Urn Cannabinoid Scrn Detected (NotDetected)
[2022-11-17 20:40] LABS: Amphetamine Screen,Urine Not Detected (NotDetected); Barbiturate Screen,Urine Not Detected (NotDetected); Benzodiazepines Screen,Urine Not Detected (NotDetected); Methadone Screen, Urine Not Detected (NotDetected); Opiate Screen,Urine Not Detected (NotDetected); Oxycodone Screen, Urine Not Detected (NotDetected); Tricyclic Antidepressant,Urine Not Detected (NotDetected)
[2022-11-17] MEDS: IBUPROFEN 600 MG TAB PO SCH (23:35)
[2022-11-18] MEDS: LACTATED RINGERS 1,000 ML IV SCH (01:36)
[2022-11-18] MEDS: ACETAMINOPHEN TAB 500 MG TAB PO SCH ×4 (02:45→22:27)
[2022-11-18] MEDS: IBUPROFEN 600 MG TAB PO SCH ×4 (05:04→19:56)
[2022-11-18 05:38] LABS: Basophils % (A) 0 %; Eosinophils # (A) 0.2 k/uL (0-0.7); Eosinophils % (A) 1 %; HCT 30.7 % (34.0-46.0); HGB 10.2 gm/dL (11.4-16.0); Lymphocytes # (A) 2.2 k/uL (1.0-4.8); Lymphocytes % (A) 14 %; MCHC 33.3 g/dL (31.0-37.0); MCV 81.1 fL (80.0-100.0); Mean Platelet Volume 7.7; Monocytes # (A) 0.7 k/uL (0-1.0); Monocytes % (A) 4 %; Neutrophils # (A) 12.8 k/uL (1.3-7.7); Neutrophils % (A) 80 %; Platelet Count 250 k/uL (150-450); RBC 3.79 m/uL (3.80-5.40); RDW 13.8 % (11.5-15.5)
--- NOTE | 2022-11-18 07:23 | P.PN ---
Progress Note - Text 11/18/22 634am 27-year-old female status post with spinal Duramorph. Patient seen and evaluated for postop pain control , she has a VAS of 2 with no complains of nausea vomiting she does have pruritus which should subside soon
--- NOTE | 2022-11-18 08:05 | P.PN ---
Subjective Progress Note Date: 11/18/22 Principal diagnosis: Doing well first postoperative day Positive flatus. No pain. Minimal lochia rubra. No complaints. Objective - Vital Signs Vital signs: Vital Signs Temp 97.9 F 11/18/22 04:00 Pulse 54 L 11/18/22 04:00 Resp 16 11/18/22 04:00 BP 116/64 11/18/22 04:00 Pulse Ox 99 11/18/22 00:00 FiO2 Intake & Output 11/17/22 11/18/22 11/18/22 18:59 06:59 18:59 Output Total 1160 1485 Balance -1160 -1485 Weight 141.067 kg Output: Urine 600 1150 Uretheral (Harrell) 350 Estimated Blood Loss 560 Output, Quantitative 335 Blood Loss Other: Voiding Method Indwelling Catheter # Voids 1 - Constitutional General appearance: Present: morbidly obese - EENT Eyes: Present: PERRLA ENT: Present: hearing grossly normal - Neck Neck: Present: normal ROM - Respiratory Respiratory: bilateral: CTA - Cardiovascular Rhythm: regular - Gastrointestinal General gastrointestinal: Present: normal bowel sounds - Genitourinary Genitourinary Comment(s): Incision clean and dry, dressing applied. Fundus firm, midline, symmetric, 18 week size. - Integumentary Integumentary: Present: normal - Neurologic Neurologic: Present: CNII-XII intact - Musculoskeletal Musculoskeletal: Present: gait normal, strength equal bilaterally - Psychiatric Psychiatric: Present: A&O x's 3, appropriate affect, intact judgment & insight - Labs CBC & Chem 7: 11/18/22 05:24 Labs: Abnormal Lab Results - Last 24 Hours (Table) 11/17/22 11/17/22 11/18/22 Range/Units 15:34 18:45 05:24 WBC 18.2 H 16.0 H (3.8-10.6) k/uL RBC 3.79 L (3.80-5.40) m/uL Hgb 10.2 L (11.4-16.0) gm/dL Hct 30.7 L (34.0-46.0) % Neutrophils # 15.1 H 12.8 H (1.3-7.7) k/uL U Methamphetamines Scrn Detected H (NotDetected) U Marijuana (THC) Screen Detected H (NotDetected) Assessment and Plan Assessment: Doing well first postoperative day Plan: Continue postoperative care. Advanced diet and activity. Likely discharge home tomorrow. Time with Patient: Less than 30
[2022-11-18] MEDS: SENNOSIDES-DOCUSATE SODIUM 1 EACH TAB PO SCH ×2 (08:15→20:07)
[2022-11-19] MEDS: IBUPROFEN 600 MG TAB PO SCH ×5 (02:53→20:24)
[2022-11-19] MEDS: ACETAMINOPHEN TAB 500 MG TAB PO SCH ×5 (06:04→23:45)
[2022-11-19] MEDS: SENNOSIDES-DOCUSATE SODIUM 1 EACH TAB PO SCH ×2 (08:23→20:24)
--- NOTE | 2022-11-19 09:18 | P.PN ---
Subjective Progress Note Date: 11/19/22 Principal diagnosis: Primary Section The patient is doing well this morning and had no acute events overnight. She is eating, drinking without nausea or vomiting. She is ambulating and voiding without difficulty. She is passing flatus and has had a bowel movement. She de nies chest pain, shortness of breath, fevers, chills, pain/swelling in the legs. She would like to stay another day to be with her who is currently receiving care in the nursery. Objective - Vital Signs Vital signs: Vital Signs Temp 98.3 F 11/19/22 08:00 Pulse 87 11/19/22 08:00 Resp 20 11/19/22 08:00 BP 108/65 11/19/22 00:00 Pulse Ox 97 11/19/22 08:00 FiO2 Intake & Output 11/18/22 11/19/22 11/19/22 18:59 06:59 18:59 Intake Total 360 360 Output Total 600 600 Balance -240 -600 360 Intake: Oral 360 360 Output: Urine 600 Emesis 600 Other: # Voids 1 1 1 # Bowel Movements 1 - Exam GA: A+Ox4, NAD Abdomen: Soft, nontneder, nondistended. Incision covered with dressing that is intended to stay in place until 2 week incision check. Steristrips are seen underneath. There is no shadowing or saturation of the coverlet. Extremities are non-edematous and non-tender. - Labs CBC & Chem 7: 11/18/22 05:24 Assessment and Plan Assessment: 27 year old s/p repeat C/S with tubal ligation at 37 weeks gestation 2/2 decreased movement and non-reactive NST Plan: 1. Postoperative/. Patient meeting all milestones appropriately. Continue to monitor. 2. Marijuana use in . Social work consulted. 3. Viable female infant in nursery. Doing well. Dispo: Continue inpatient management. Likely discharge home tomorrow. Time with Patient: Less than 30 (15 minutes)
[2022-11-20] MEDS: IBUPROFEN 600 MG TAB PO SCH ×2 (03:17→10:34)
[2022-11-20] MEDS: ACETAMINOPHEN TAB 500 MG TAB PO SCH (06:33)
[2022-11-20] MEDS: SENNOSIDES-DOCUSATE SODIUM 1 EACH TAB PO SCH (08:04)
[2022-11-20 08:08] VITALS: BP 143/81; PULSE 75; RESP 18; TEMP 98.2
--- NOTE | 2022-11-20 09:32 | P.PNOBGPC ---
Subjective - Subjective Principal diagnosis: s/p Repeat Lower Transverse Section Interval history: The patient is doing well this morning and had no acute events overnight. She has no complaints this morning. She reports minimal lochia, passing flatus, having bowel movements, voiding without difficulty, ambulating, and eating/drinking without nausea or vomiting. She is formula-feeding her infant, who is doing well in the nursrery. She denies chest pain, shortness of breathin g, fevers, or chills overnight. She denies pain or swelling in the legs. Patient reports: Reports appetite normal, Reports voiding normally, Reports pain well controlled, Reports ambulating normally [place]: doing well (in nursery) Objective - Vital Signs Latest vital signs: Vital Signs Temp Pulse Resp BP Pulse Ox 11/20/22 08:00 98.2 F 75 18 143/81 100 11/20/22 00:00 98.1 F 71 16 145/85 100 11/19/22 15:03 98.4 F 78 20 141/78 Intake and Output 11/19/22 11/20/22 11/20/22 22:59 06:59 14:59 Intake Total 360 Balance 360 Intake: Oral 360 Other: # Voids 1 3 1 - Exam Extremities: Present: normal Abdomen: Present: normal appearance, aortic enlargement Incision: Present: normal, dry, dressed Uterus: Present: normal, firm Assessment and Plan Assessment: 27 year old POD#3 s/p repeat C/S with tubal ligation at 37 weeks gestation 2/2 decreased movement and non-reactive NST Plan: 1. Postoperative/. Patient meeting all milestones appropriately. 2. Intermittently elevated blood pressures , all <150/90 2. Marijuana use in . Social work consulted. 3. Viable female in nursery. Doing well. Dispo: Discharge home today.
--- NOTE | 2022-11-20 09:44 | P.DS ---
Providers Date of admission: 11/17/22 15:34 Expected date of discharge: 11/20/22 Attending physician: Lorena Ayers Primary care physician: Lorena Ayers [facility] Course: This is a 27-year-old female 2 para 1001 EDC 11/28/2022 POD#3 s/p repeat C/S with tubal ligation at 38-3/7 weeks' gestation. Patient was delivered a few days prior to her scheduled induction complaining of decreased movement. NST was non-reactive for over an hour of evaluation. Blood pressure was also noted to be elevated 150/80. The decision was made to proceed with C/S at that time. The C/S was uncomplicated, tubal ligation was performed for contraception as decided by the patient and Dr. Ayers during the . The patient met all postoperative milestones appropriately and desires discharge home on POD#3. Discharge instructions reviewed including no lifting heavier than 15 pounds for 6 weeks and pelvic rest for 6 weeks. Because the patient has not required any narcotics during admission, she will go home with prescriptions for Motrin and T ylenol for pain. She will follow up in the office in 1 week for blood pressure check given her history of gestational hypertension. Assessment: This is a 27-year-old female POD#3 s/p rC/S with BTL Patient Condition at Discharge: Good Plan - Discharge Summary Discharge Rx Participant: No New Discharge Prescriptions: New Ibuprofen [Motrin] 600 mg PO Q6HR PRN #30 tab PRN Reason: Mild Pain (Scale 1 To 3) Acetaminophen Tab [Tylenol] 650 mg PO Q6H PRN #30 tab PRN Reason: Mild Pain (Scale 1 To 3) No Action Vit No.180/Iron/Folic [ Plus Tablet] 1 tab PO DAILY Citalopram Hydrobromide [Citalopram HBr] 20 mg PO DAILY Discharge Medication List Vit No.180/Iron/Folic [ Plus Tablet] 1 tab PO DAILY 11/26/19 [History] Citalopram Hydrobromide [Citalopram HBr] 20 mg PO DAILY 11/17/22 [History] Acetaminophen Tab [Tylenol] 650 mg PO Q6H PRN #30 tab 11/20/22 [Rx] Ibuprofen [Motrin] 600 mg PO Q6HR PRN #30 tab 11/20/22 [Rx] Follow up Appointment(s)/Referral(s): Lorena Ayers MD [Primary Care Provider] - 1 Week (Blood pressure check) Patient Instructions/Handouts: Depression (DC), Caring for Your Baby (DC), Bleeding (DC), (DC) Activity/Diet/Wound Care/Special Instructions: No lifting heavier than 15 pounds for 6 weeks. Pelvic rest for 6 weeks. Otherwise, activity as tolerated. Discharge Disposition: HOME SELF-CARE
== END 2022-11-20 11:30 | disposition home or self-care (01) | DRG 784 ==
LOC: 4FBP 15:34
PROVIDERS: ADMIT Obstetrics & Gynecology; ATTEND Obstetrics & Gynecology
PROC: 0UL70CZ Occlusion of Bilateral Fallopian Tubes with Extraluminal Device, Open Approach (ICD-10-PCS; 2022-11-17)
PROC: 4A0HXCZ Measurement of Products of Conception, Cardiac Rate, External Approach (ICD-10-PCS; 2022-11-17)
PROC: 10D00Z1 Extraction of Products of Conception, Low, Open Approach (ICD-10-PCS; principal; 2022-11-17 16:00)
DX: O34.211 Maternal care for low transverse scar from previous cesarean delivery (principal); O99.324 Drug use complicating childbirth; O36.8130 Decreased fetal movements, third trimester, not applicable or unspecified; O76 Abnormality in fetal heart rate and rhythm complicating labor and delivery; O77.0 Labor and delivery complicated by meconium in amniotic fluid; L29.9 Pruritus, unspecified; F41.9 Anxiety disorder, unspecified; F32.A Depression, unspecified; O99.344 Other mental disorders complicating childbirth; O99.214 Obesity complicating childbirth; O99.73 Diseases of the skin and subcutaneous tissue complicating the puerperium; E66.01 Morbid (severe) obesity due to excess calories; O24.429 Gestational diabetes mellitus in childbirth, unspecified control; O69.81X0 Labor and delivery complicated by cord around neck, without compression, not applicable or unspecified; F12.90 Cannabis use, unspecified, uncomplicated; Z30.2 Encounter for sterilization; Z37.0 Single live birth; Z3A.38 38 weeks gestation of pregnancy; Z79.899 Other long term (current) drug therapy; Z87.891 Personal history of nicotine dependence
CPT/HCPCS: 80306; 85025; 86850; 86900; 86901